=== PATIENT | male | born 1970 | race African-American/Black ===

== ENCOUNTER 2020-03-01 14:38 | Emergency (ER) | payer OTHER ==
[~2020-03-01] VITALS: Ht 185.4 cm; Wt 141.5 kg
[2020-03-01] MEDS ORDERED: cloNIDine HCL 0.1 MG TAB ONE (14:56)
[2020-03-01] MEDS ORDERED: SODIUM CHLORIDE 0.9% 1,000 ML IV ONE (14:58)
[2020-03-01] MEDS ORDERED: cloNIDine HCL 0.1 MG TAB PO ONE (15:00)
[2020-03-01 15:56] LABS: Basophils # (auto) 0 10 ^3/uL (0-0.2); Basophils % (auto) 0.5 % (0.0-2.0); Eosinophils # (auto) 0.2 10 ^3/uL (0-0.8); Eosinophils % (auto) 2.9 % (0.0-7.0); Hematocrit 42.8 % (41.0-53.0); Hemoglobin 14.5 g/dL (13.5-17.5); Lymphocytes # (auto) 1.6 10 ^3/uL (0.4-5.4); Lymphocytes % (auto) 29.5 % (10.0-50.0); Mean Corpuscular Hemoglobin 32.4 pg (28.0-32.0); Mean Corpuscular Volume 95.4 fL (80.0-100.0); Monocytes # (auto) 0.5 10 ^3/uL (0-1.3); Monocytes % (auto) 9.4 % (0.0-12.0); Neutrophils # (auto) 3.2 10 ^3/uL (1.6-8.6); Neutrophils % (auto) 57.7 % (37.0-80.0); Platelet Count (auto) 225 10^3/uL (140-450); Red Blood Cells 4.49 10^6/uL (4.5-5.90); Red Cell Distribution Width 13.2 % (11.8-14.3); White Blood Cell 5.6 10^3/uL (4.4-10.8)
[2020-03-01 16:13] LABS: Albumin 3.8 g/dL (3.4-5.0); Calcium 8.7 mg/dL (8.5-10.1); Magnesium 2.1 mg/dL (1.6-2.6); Potassium 3.5 mmol/L (3.5-5.1)
[2020-03-01 16:20] LABS: Bilirubin, Total 1.1 mg/dL (0.2-1.0); Total Protein 7.7 g/dL (6.4-8.2)
[2020-03-01 16:23] LABS: INR 1.01 (0.9-1.15); Partial Thromboplastin Time 24.5 sec (23.64-32.05)
[2020-03-01 16:59] VITALS: BP 168/85
== END 2020-03-01 18:02 | disposition home or self-care (01) ==
LOC: ER 14:38
DX: I10 Essential (primary) hypertension (principal); E78.5 Hyperlipidemia, unspecified; F17.210 Nicotine dependence, cigarettes, uncomplicated
CPT/HCPCS: 36415; 71046; 80053; 83735; 84443; 84484; 85025; 85610; 85730; 93005; 93975

== ENCOUNTER → 2020-08-15 | Outpatient (CLI) | payer OTHER ==
[2020-08-15 13:46] LABS: Basophils # (auto) 0 10 ^3/uL (0-0.2); Eosinophils # (auto) 0.2 10 ^3/uL (0-0.8); Eosinophils % (auto) 4.9 % (0.0-7.0); Hematocrit 40.8 % (41.0-53.0); Hemoglobin 13.7 g/dL (13.5-17.5); Lymphocytes # (auto) 1.6 10 ^3/uL (0.4-5.4); Lymphocytes % (auto) 40.3 % (10.0-50.0); Mean Corpuscular Hgb Conc. 33.6 g/dL (32.0-36.0); Mean Corpuscular Volume 95.2 fL (80.0-100.0); Monocytes # (auto) 0.4 10 ^3/uL (0-1.3); Neutrophils # (auto) 1.7 10 ^3/uL (1.6-8.6); Neutrophils % (auto) 43.8 % (37.0-80.0); Nucleated Red Blood Cells % 0.1 %; Platelet Count (auto) 250 10^3/uL (140-450); Red Blood Cells 4.28 10^6/uL (4.5-5.90); Red Cell Distribution Width 12.9 % (11.8-14.3)
[2020-08-15 13:50] LABS: Urine Bacteria NONE SEEN /hpf (None Seen); Urine Blood Negative /uL (Negative); Urine Mucus FEW (None Seen); Urine Specific Gravity 1.028 (1.001-1.035); Urine WBC 19 /hpf (0 - 3)
[2020-08-15 14:30] LABS: Albumin 3.8 g/dL (3.4-5.0); Potassium 3.7 mmol/L (3.5-5.1)
[2020-08-15 14:36] LABS: BUN/Creatinine Ratio 18.6; Bilirubin, Total 0.8 mg/dL (0.2-1.0); Total Protein 7.2 g/dL (6.4-8.2)
== END | disposition home or self-care (01) ==
LOC: LAB 13:20
PROVIDERS: ATTEND Nurse Practitioner
DX: I50.9 Heart failure, unspecified (principal); E78.5 Hyperlipidemia, unspecified; R73.9 Hyperglycemia, unspecified
CPT/HCPCS: 36415; 80053; 80061; 81001; 84443; 85025

== ENCOUNTER → 2020-08-30 | Outpatient (CLI) | payer OTHER | END | disposition home or self-care (01) | LOC: XYW 10:56 | PROVIDERS: ATTEND Internal Medicine | DX: I08.2 Rheumatic disorders of both aortic and tricuspid valves (principal); I10 Essential (primary) hypertension | CPT/HCPCS: 93306 ==